=== PATIENT | male | born 1980 | race Caucasian/White ===

== ENCOUNTER 2020-08-25 07:57 | Outpatient (CLI) | payer MEDICARE, MEDICAID, SELFPAY ==
--- NOTE | 2020-08-25 08:02 | ECG_ITS ---
Measurements Intervals [place] Rate: 92 P: 74 VA: 165 QRS: 57 QRSD: 113 T: 35 QT: 328 QTc: 407 Interpretive Statements SINUS RHYTHM INCOMPLETE RIGHT BUNDLE BRANCH BLOCK DELAYED PRECORDIAL R/S TRANSITION BORDERLINE ECG Electronically Signed On 08-25-2020 8:14:08 CDT by Julián Banks D.O.
[2020-08-25 08:22] LABS: Hematocrit 49.4 % (42.0-52.0); Hemoglobin 16.9 g/dL (14.0-18.0); Mean Corpuscular HGB Conc 34.2 g/dl (32-36); Mean Corpuscular Hemoglobin 29.8 pg (26-34); Mean Corpuscular Volume 87.1 fl (80-100); Mean Platelet Volume 10.3 fl (7.4-10.4); Platelet Count Result 189 k/mm3 (150-375); Red Blood Count 5.67 M/mm3 (4.6-6.20); Red Cell Distribution Width 17.6 % (11.5-14.5); White Blood Count 9.2 K/mm3 (4.5-10.0)
[2020-08-25 08:40] LABS: Anion Gap 6.99999 mmol/L (8-16); Blood Urea Nitrogen 35 mg/dL (9-20); Calcium 9.4 mg/dL (8.4-10.2); Carbon Dioxide > 40 mmol/L (22-30); Chloride 89 mmol/L (98-107); Estimated Glomerular Filt Rate 51; Glucose 336 mg/dL (75-110); Potassium 3.4 mmol/L (3.4-5.0); Sodium 136 mmol/L (137-145)
[2020-08-25 08:46] LABS: Prealbumin 39.8 mg/dL (17.6-36.0)
[2020-08-25 08:53] LABS: Hemoglobin A1C 8.3 % (<5.7)
[2020-08-25 08:59] LABS: Iron 164 ug/dL (49-181)
[2020-08-29 11:30] LABS: Vitamin B1 9 nmol/L (8-30)
== END 2020-08-25 07:58 | disposition home or self-care (01) ==
PROVIDERS: PCP Nurse Practitioner Family; Visit Provider Surgery Plastic and Reconstructive Surgery
DX: Z41.1 Encounter for cosmetic surgery (principal); E11.9 Type 2 diabetes mellitus without complications; Z01.818 Encounter for other preprocedural examination
CPT/HCPCS: 36415; 80048; 82040; 83036; 83540; 84134; 84425; 85027; 93005

== ENCOUNTER 2020-08-30 01:19 | Outpatient (CLI) | payer MEDICARE, MEDICAID, SELFPAY ==
[2020-08-30 22:13] LABS: SARS-CoV-2 RNA PCR Negative
== END 2020-08-30 01:20 | disposition home or self-care (01) ==
LOC: ANHCOVIDDT 01:20
PROVIDERS: PCP Nurse Practitioner Family; Visit Provider Surgery Plastic and Reconstructive Surgery
DX: Z01.812 Encounter for preprocedural laboratory examination (principal); Z20.828 Contact with and (suspected) exposure to other viral communicable diseases
CPT/HCPCS: 87635; C9803; U0003

== ENCOUNTER 2021-02-06 09:07 | Outpatient (CLI) | payer MEDICARE, MEDICAID, SELFPAY ==
[2021-02-06 09:49] LABS: Anion Gap 8 mmol/L (8-16); Blood Urea Nitrogen 15 mg/dL (9-20); Calcium 9.1 mg/dL (8.4-10.2); Carbon Dioxide 24 mmol/L (22-30); Chloride 114 mmol/L (98-107); Estimated Glomerular Filt Rate > 60; Glucose 167 mg/dL (75-110); Potassium 3.9 mmol/L (3.4-5.0); Sodium 146 mmol/L (137-145)
== END 2021-02-06 09:08 | disposition home or self-care (01) ==
LOC: ANHSURGERY 09:13
PROVIDERS: Anesthesiology; PCP Nurse Practitioner Family; Visit Provider Surgery Plastic and Reconstructive Surgery
DX: E11.9 Type 2 diabetes mellitus without complications (principal); Z79.899 Other long term (current) drug therapy
CPT/HCPCS: 36415; 80048

== ENCOUNTER → 2021-02-07 00:42 | Outpatient (CLI) | payer MEDICARE, MEDICAID, SELFPAY ==
[2021-02-07 18:53] LABS: SARS-CoV-2 RNA PCR Negative
== END ==
PROVIDERS: PCP Nurse Practitioner Family; Visit Provider Surgery Plastic and Reconstructive Surgery
DX: Z01.812 Encounter for preprocedural laboratory examination (principal); Z20.822 Contact with and (suspected) exposure to COVID-19
CPT/HCPCS: C9803; U0003; U0005

== ENCOUNTER 2021-02-10 01:41 | Day surgery (SDC) | payer MEDICARE, MEDICAID, SELFPAY ==
[2020-08-18 11:04] VITALS: BMI 28.3
[2021-01-27 13:52] VITALS: BMI 29.2
[2021-02-10] VITALS (17 sets, daily range): BP systolic 114–166; BP diastolic 63–97; PULSE 80–95; RESP 14–20; TEMP 36.1–36.8; O2SAT 95–100
[2021-02-10 06:30] LABS: Urine Cotinine NEGATIVE
--- NOTE | 2021-02-10 06:43 | WPDANESEPPF ---
Anes - Initial Pre Proc Eval Procedure: Operation Date: 02/10/21 07:30 Proposed Procedures p Panniculectomy - Chuck Camacho MD Date/Time: 02/10/21 06:43 Surgeon: Chuck Camacho MD Pre Op Diagnosis: panniculitis Patient Data Age: 40 Gender: M Height: 5 ft 10 in Weight: 92.5 kg Allergies Allergy/AdvReac Type Severity Reaction Status Date / Time bee venom protein (honey bee) Allergy Anaphylactic Verified 02/02/21 10:06 Shock Iodine and Iodide Containing Allergy skin Verified 02/02/21 10:06 Produc redness/irritation povidone-iodine Allergy SKIN Verified 02/02/21 10:06 IRRITATION shellfish derived Allergy Diarrhea Verified 02/02/21 10:06 Home Medications Medication Instructions Recorded Confirmed Type atorvastatin 10 mg tablet 10 mg PO DAILY 04/16/20 01/27/21 History gemfibrozil 600 mg tablet 600 mg PO BID 04/16/20 01/27/21 History metformin 1,000 mg tablet 1,000 mg PO BID 04/16/20 01/27/21 History omeprazole 20 mg capsule,delayed 20 mg PO DAILY 04/16/20 01/27/21 History release testosterone cypionate 200 mg/mL 400 mg IM WEEKLY 04/16/20 01/27/21 History intramuscular kit trazodone 100 mg tablet 100 mg PO QPM 04/16/20 01/27/21 History furosemide 40 mg PO DAILY 08/18/20 01/27/21 History insulin detemir U-100 [Levemir 25 unit SUBCUT BID 08/18/20 01/27/21 History U-100 Insulin] apple cider vinegar 250 mg PO DAILY 01/27/21 01/27/21 History cetirizine 10 mg PO DAILY 01/27/21 01/27/21 History dapagliflozin [Farxiga] 5 mg PO DAILY 01/27/21 01/27/21 History dorzolamide 1 drp LEFT EYE BID 01/27/21 01/27/21 History ergocalciferol (vitamin D2) 1,250 mcg PO WEEKLY 01/27/21 01/27/21 History hydroxyzine HCl 25 mg PO TID PRN 01/27/21 01/27/21 History prednisolone acetate 1 drp EACH EYE QID 01/27/21 01/27/21 History pregabalin 150 mg PO BID 01/27/21 01/27/21 History semaglutide [Ozempic] 0.25 mg SUBCUT WEEKLY 01/27/21 01/27/21 History timolol maleate 1 drp EACH EYE BID 01/27/21 01/27/21 History docusate sodium 100 mg capsule 100 mg PO BID #14 cap 02/02/21 Rx ondansetron HCl 4 mg tablet 4 mg PO Q6H PRN #30 tablet 02/02/21 Rx oxycodone-acetaminophen 5 mg-325 1 tablet PO Q6H PRN #15 tablet 02/02/21 02/02/21 Rx mg tablet Laboratory Tests 02/10/21 06:09 Cotinine Negative Patient hx anesthesia problems: none Family hx anesthesia problems: none PMFSH Past Medical History Medical History Anxiety Depression Diabetes Heartburn High cholesterol History of vascular disease Surgical History Surgical History History of vascular surgery multiple procedures Family History Family History Other Diabetes mellitus Social History Social History Smoking packs per day: 0.5 Smoking cigarettes per day: 10.0 Years smoked: 20 Smoking pack-years: 10.00 Smoking status: Former smoker Tobacco type: cigarettes and cigars Additional smoking assessment comments: QUIT CIGARS MAY 2020, QUIT CIGARETTES 2017 Alcohol intake: never Substance use: current Substance use type: marijuana Other substance usage details: EDIBLES/PILLS Last use: 01/19/21 Living arrangements: with family Spiritual care concerns: No Anes - Eval Final PreProcedure Day of Procedure 02/10/21 06:43 Patient weight: overweight Heart: regular rate and rhythm Lungs: clear to auscultation Airway: Mallampati scale class II and other (edentulous) Neurological: alert and oriented Last oral intake: >/= 8 hours ASA classification: III Emergent: no Anesthetic plan: proceed Anesthesia type and monitoring: general ETT and standard monitoring Informed Consent: The patient's anesthetic plan and its attendant risks and benefits were discussed with the patient/family/POA. Questions we
--- NOTE | 2021-02-10 06:53 | WPDHPUPDATE1 ---
History and Physical Update Update Date/Time: 02/10/21 06:53 History and Physical has been reviewed, including an updated exam of the patient. There are NO changes in the patient's condition. Risks, benefits, and alternatives have been discussed and questions answered. Patient agrees to proceed with procedure.
[2021-02-10] MEDS: LACTATED RINGERS 1,000 ML 30 ML IV CONT ×2 (07:05→09:33)
[2021-02-10 07:14] LABS: Glucose Point of Care 210 (65-105)
--- NOTE | 2021-02-10 07:15 | PM.PROC ---
Procedure Note - Detailed Date of procedure: 02/10/21 Pre-op diagnosis: panniculitis Post-op diagnosis: same Procedure performed: Panniculectomy Description of procedure: Patient was marked in the preoperative holding area with his verification. Risks, benefits, alternatives were discussed in extensive detail. I want them to be very realistic about the risks involved as well as expectations. All standing I did a thorough abdominal examination. He states he does not mind losing the umbilicus if necessary. All questions answered to his satisfaction and consent obtained. He was taken to the operating room placed supine on the operating room table. Anesthesia was provided by anesthesiology and prepped and draped in a standard sterile fashion. Surgical time-out was taken. A thorough abdominal examination completed. No hernias palpable. Stab incision was made that tumesced with a tumescent solution. Ten blade used to make the lower incision. I continued dissection to the fascia. Using a V resection with no undermining I resected the planned panniculus. This included removal of umbilicus. Closure was tension free. He was closed over 15 Lalo drains bilateral using 2-0 Vicryl followed by 3-0 strata fix and stephanie. Drains were sutured into place with 3-0 nylon. Dressings placed. He was awoken and taken to the PACU without difficulty. All instrument sponge counts were correct at the end of the case. Anesthesia: GETA Surgeon: Chuck Camacho MD Estimated blood loss (mL): 125 Drains: Yes (Bilateral Lalo) Packing: No Pathology: none sent Complications: No immediate complications Condition: stable Disposition: PACU Findings: Tissue weight 3307 grams
[2021-02-10] MEDS: ceFAZolin 2 GM/D5W 50 ML 2 GM/50 ML BAG IVPB (07:25)
--- NOTE | 2021-02-10 09:05 | SUR.OPER ---
EBL:125cc
--- NOTE | 2021-02-10 09:16 | SUR.OPER ---
area of abrasion present to right lower abdomen, dr. escalona aware
[2021-02-10 09:38] LABS: Glucose Point of Care 184 (65-105)
[2021-02-10] MEDS: fentaNYL CITRATE INJ (*CRX) 100 MCG/2 ML VIAL 25 MCG IV PUSH ×10 (09:41→10:29)
[2021-02-10 11:43] LABS: Mean Platelet Volume 10.3 fl (7.4-10.4); Platelet Count Result 182 k/mm3 (150-375)
[2021-02-10 11:56] LABS: Estimated CRCL calculation 80 ml/min; Estimated Glomerular Filt Rate > 60
[2021-02-10] MEDS: oxyCODONE/ACETAMINOPHEN (*CRX) 5-325 MG TABLET PO ×2 (12:22→18:38)
[2021-02-10] MEDS: PANTOPRAZOLE 40 MG TABLET PO (12:23)
[2021-02-10] MEDS: ATORVASTATIN 10 MG TABLET PO (12:23)
[2021-02-10 14:27] LABS: Glucose Point of Care 147 (65-105)
--- NOTE | 2021-02-10 14:36 | ADMGEN ---
This patient, Kishor Cohen, was admitted to Medical Room 258-. Patient/family oriented to hospital policies and general routines including ID bracelet, bed and alarms, visiting hours, pain management, procedures, bathroom and other care routines, personal items, smoking policy, room service/diet, and visiting hours. Information on how to activate the Rapid Response Team has been discussed. Patient/Family are encouraged to report perceived risks to care and to ask questions if they do not understand what they are told or what they should do.
--- NOTE | 2021-02-10 14:41 | PM.IMPN ---
Subjective Date/time seen: 02/10/21 14:41 Objective Data Vital Signs Vital Signs: Vital Signs - 24 hr 02/10/21 06:10 02/10/21 09:33 02/10/21 09:40 Temperature 36.8 C 36.1 C L Pulse Rate 90 93 87 Respiratory Rate 20 18 18 Blood Pressure 136/63 166/96 H 159/97 H Pulse Oximetry 100 98 99 02/10/21 09:55 02/10/21 10:05 02/10/21 10:10 Temperature Pulse Rate 87 94 86 Respiratory Rate 16 16 16 Blood Pressure 157/89 H 165/95 H 155/89 H Pulse Oximetry 98 100 95 02/10/21 10:20 02/10/21 10:30 02/10/21 10:40 Temperature Pulse Rate 85 85 87 Respiratory Rate 14 14 14 Blood Pressure 157/85 H 146/86 H 152/87 H Pulse Oximetry 96 98 96 02/10/21 10:45 02/10/21 10:53 Temperature Pulse Rate 86 90 Respiratory Rate 16 Blood Pressure 150/86 H 149/90 H Pulse Oximetry 96 96 Intake/Output Intake/Output: Intake & Output 02/07/21 02/08/21 02/09/21 02/10/21 23:59 23:59 23:59 23:59 Intake Total 500 Output Total 30 Balance 470 Meds/Results Medications: Active Medications Generic Name Dose Route Start Last Admin Trade Name Freq PRN Reason Stop Dose Admin Atorvastatin Calcium 10 mg 02/10/21 12:00 02/10/21 12:23 Atorvastatin 10 Mg Tablet PO 10 mg DAILY PILAR Administration Dextrose 12.5 gm 02/10/21 14:34 Dextrose 50% 25 Gm/50 Ml Syringe IV PUSH PRN PRN Hypoglycemia Protocol Docusate Sodium 100 mg 02/10/21 21:00 Docusate Sodium 100 Mg Capsule PO Q12HR PILAR Docusate Sodium 100 mg 02/10/21 17:00 Docusate Sodium 100 Mg Capsule PO BID ON LICENSE OF [facility] Dorzolamide HCl 1 drop 02/10/21 21:00 Dorzolamide Hcl 2% Ophth Drops LEFT EYE Q12HR ON LICENSE OF [facility] Enoxaparin Sodium 40 mg 02/10/21 17:00 Enoxaparin 40 Mg/0.4 Ml Syringe SUB-Q Q24H ON LICENSE OF [facility] Ergocalciferol unit 02/17/21 09:00 Ergocalciferol 50,000 Unit Capsule PO WEEKLY PILAR Furosemide 40 mg 02/11/21 09:00 Furosemide 40 Mg Tablet PO DAILY PILAR Gemfibrozil 600 mg 02/10/21 16:30 Gemfibrozil 600 Mg Tablet PO BIDAC ON LICENSE OF [facility] Glucagon 1 mg 02/10/21 14:34 Glucagon For Inj 1 Mg Vial IM PRN PRN Hypoglycemia Protocol Glucose 15 gm 02/10/21 14:34 Glucose Oral Gel 15 Gm Of Glucse In 37.5 Gm Tube PO PRN PRN Hypoglycemia Protocol Hydroxyzine HCl 25 mg 02/10/21 14:38 Hydroxyzine Hcl 25 Mg Tablet PO TID PRN Anxiety Lactated Ringer's 1,000 mls @ 125 mls/hr 02/10/21 09:40 Lr - Lactated Ringers Iv IV CONT .Q8H ON LICENSE OF [facility] Dextrose 1,000 mls @ 100 mls/hr 02/10/21 14:34 Dextrose 5% 1,000 Ml IVPB PRN PRN Hypoglycemia Protocol Insulin Aspart 3 - 6 units 02/10/21 17:00 Insulin Aspart (*Bkc) 100 Units/Ml SUB-Q TIDWM ON LICENSE OF [facility] Protocol Loratadine 10 mg 02/11/21 09:00 Loratadine 10 Mg Tablet PO 03/13/21 09:01 DAILY ON LICENSE OF [facility] Metformin HCl 1,000 mg 02/10/21 17:00 Metformin Hcl 500 Mg Tablet PO BID ON LICENSE OF [facility] Morphine Sulfate 2 mg 02/10/21 09:39 Morphine Sulfate (*Crx) 2 Mg/Ml Inj IV PUSH Q2H PRN Pain Non-Formulary Medication 5 mg 02/11/21 09:00 Dapagliflozin [Farxiga] PO 03/13/21 09:01 DAILY ON LICENSE OF [facility] Non-Formulary Medication 0.25 mg 02/17/21 09:00 Semaglutide [Ozempic] SUB-Q 03/19/21 09:01 WEEKLY ON LICENSE OF [facility] Non-Formulary Medication 250 mg 02/11/21 09:00 Apple Cider Vinegar PO 03/13/21 09:01 DAILY ON LICENSE OF [facility] Non-Formulary Medication 25 unit 02/10/21 17:00 Insulin Detemir U-100 SUB-Q 03/12/21 17:01 BID ON LICENSE OF [facility] Ondansetron HCl 4 mg 02/10/21 09:39 Ondansetron Inj 4 Mg/2 Ml Vial IV PUSH Q6H PRN Nausea Oxycodone/Acetaminophen 1 - 2 tablet 02/10/21 09:39 02/10/21 12:22 Oxycodone/Acetaminophen (*Crx) 5-325 Mg Tablet PO 2 tablet Q6H PRN Administration Pain Pantoprazole Sodium 40 mg 02/10/21 12:00 02/10/21 12:23 Pantoprazole 40 Mg Tablet PO 03/13/21 12:01 40 mg DAILY PILAR Administration Prednisolone Acetate
[2021-02-10] MEDS: LACTATED RINGERS 1,000 ML 125 ML IV CONT ×2 (14:43→22:52)
--- NOTE | 2021-02-10 14:53 | PM.IMCN ---
HPI Data of Consult Consult date: 02/10/21 Requesting Physician: Chuck Camacho MD Primary Care Provider: Cari Sher, ARMORED CAR DRIVER Consult Narrative Reason for consult: Medical managment Narrative: Kishor Cohen is a 40 year old male FORMERLY [facility], [facility]–1983 Past Medical History Medical History Anxiety Depression Diabetes Heartburn High cholesterol History of vascular disease Surgical History Surgical History History of vascular surgery multiple procedures Family History Family History Other Diabetes mellitus Social History Social History Smoking packs per day: 0.5 Smoking cigarettes per day: 10.0 Years smoked: 20 Smoking pack-years: 10.00 Smoking status: Never smoker Tobacco type: cigarettes and cigars Additional smoking assessment comments: QUIT CIGARS MAY 2020, QUIT CIGARETTES 2017 Alcohol intake: current Drinks per week: 1 Substance use: current Substance use type: marijuana Other substance usage details: EDIBLES/PILLS Last use: 02/09/21 Living arrangements: with family Gender identity (if verbalized by the patient): Male Spiritual care concerns: No Meds Home Medications and Allergies Home Medications Medication Instructions Recorded Confirmed Type atorvastatin 10 mg tablet 10 mg PO DAILY 04/16/20 02/10/21 History gemfibrozil 600 mg tablet 600 mg PO BID 04/16/20 02/10/21 History metformin 1,000 mg tablet 1,000 mg PO BID 04/16/20 02/10/21 History omeprazole 20 mg capsule,delayed 20 mg PO DAILY 04/16/20 02/10/21 History release testosterone cypionate 200 mg/mL 400 mg IM WEEKLY 04/16/20 02/10/21 History intramuscular kit trazodone 100 mg tablet 100 mg PO QPM 04/16/20 02/10/21 History furosemide 40 mg PO DAILY 08/18/20 02/10/21 History insulin detemir U-100 [Levemir 25 unit SUBCUT BID 08/18/20 02/10/21 History U-100 Insulin] apple cider vinegar 250 mg PO DAILY 01/27/21 02/10/21 History cetirizine 10 mg PO DAILY 01/27/21 02/10/21 History dapagliflozin [Farxiga] 5 mg PO DAILY 01/27/21 02/10/21 History dorzolamide 1 drp LEFT EYE BID 01/27/21 02/10/21 History ergocalciferol (vitamin D2) 1,250 mcg PO WEEKLY 01/27/21 02/10/21 History hydroxyzine HCl 25 mg PO TID PRN 01/27/21 02/10/21 History prednisolone acetate 1 drp EACH EYE QID 01/27/21 02/10/21 History pregabalin 150 mg PO BID 01/27/21 02/10/21 History semaglutide [Ozempic] 0.25 mg SUBCUT WEEKLY 01/27/21 02/10/21 History timolol maleate 1 drp EACH EYE BID 01/27/21 02/10/21 History docusate sodium 100 mg capsule 100 mg PO BID #14 cap 02/02/21 02/10/21 Rx ondansetron HCl 4 mg tablet 4 mg PO Q6H PRN #30 tablet 02/02/21 02/10/21 Rx oxycodone-acetaminophen 5 mg-325 1 tablet PO Q6H PRN #15 tablet 02/02/21 02/10/21 Rx mg tablet Allergies Allergy/AdvReac Type Severity Reaction Status Date / Time bee venom protein (honey bee) Allergy Severe Anaphylactic Verified 02/10/21 06:53 Shock Iodine and Iodide Containing Allergy Severe EXTREME Verified 02/10/21 06:53 Produc PAIN AND BURNING AT SITE povidone-iodine Allergy Severe EXTREME Verified 02/10/21 06:53 KILPATRICK/BURNING shellfish derived AdvReac Mild Diarrhea Verified 02/10/21 06:53 Vital Signs Vital Signs - 24 hr 02/10/21 06:10 02/10/21 09:33 02/10/21 09:40 Temperature 36.8 C 36.1 C L Pulse Rate 90 93 87 Respiratory Rate 20 18 18 Blood Pressure 136/63 166/96 H 159/97 H Pulse Oximetry 100 98 99 02/10/21 09:55 02/10/21 10:05 02/10/21 10:10 Temperature Pulse Rate 87 94 86 Respiratory Rate 16 16 16 Blood Pressure 157/89 H 165/95 H 155/89 H Pulse Oximetry 98 100 95 04/13/21 10:20 02/10/21 10:30 02/10/21 10:40 Temperature Pulse Rate 85 85 87 Respiratory Rate 14 14 14 Blood Pressure 157/85 H 146/86 H 152/87 H Pulse Oxim
--- NOTE | 2021-02-10 15:04 | PM.IMCN ---
Assessment and Plan Assessment and plan (1) Diabetes: Code(s): E11.9 - Type 2 diabetes mellitus without complications Status: Acute Assessment and Plan: Per pt last Hgb A1x 12.3, 2 weeks ago Hold oral antihyperglycemics SSI, accuchecks Monitor (2) High cholesterol: Code(s): E78.00 - Pure hypercholesterolemia, unspecified Status: Acute Assessment and Plan: Resume home statin (3) Heartburn: Code(s): R12 - Heartburn Status: Acute Assessment and Plan: Resuem home PPI (4) S/P panniculectomy: Code(s): Z98.890 - Other specified postprocedural states Status: Acute Assessment and Plan: Management per GS Pain control Dressing changes ROSEY drain present HPI Data of Consult Consult date: 02/10/21 Requesting Physician: Chuck Camacho MD Primary Care Provider: Cari Sher, DITCHING MACHINE OPERATOR Consult Narrative Reason for consult: * Narrative: Kishor Cohen is a 40 year old male who has a past medical history including DM type II, HLD, and GERD been admitted for panniculitis. He tells me he has over 30 medical diagnoses.He has lost a significant amount of weight with diet and exercise and had been having problems with rashes and infections under his panniculus. He also had concerns with odor and hygiene.He has undergone panniculectomy today per Dr. Camacho. We have been consulted for medical management. His was at the bedside during interview and exam. He tells me that his pain is controlled at this time. He denied any fever, chills, SERRA, CP, SOB, N/D. Review of Systems Review of Systems: All systems reviewed & are unremarkable except as noted in HPI and below PMFSH Past Medical History Medical History Anxiety Depression Diabetes Heartburn High cholesterol History of vascular disease Surgical History Surgical History History of vascular surgery multiple procedures Family History Family History Other Diabetes mellitus Social History Social History Smoking packs per day: 0.5 Smoking cigarettes per day: 10.0 Years smoked: 20 Smoking pack-years: 10.00 Smoking status: Never smoker Tobacco type: cigarettes and cigars Additional smoking assessment comments: QUIT CIGARS MAY 2020, QUIT CIGARETTES 2017 Alcohol intake: current Drinks per week: 1 Substance use: current Substance use type: marijuana Other substance usage details: EDIBLES/PILLS Last use: 02/09/21 Living arrangements: with family Gender identity (if verbalized by the patient): Male Spiritual care concerns: No Meds Home Medications and Allergies Home Medications Medication Instructions Recorded Confirmed Type atorvastatin 10 mg tablet 10 mg PO DAILY 04/16/20 02/10/21 History gemfibrozil 600 mg tablet 600 mg PO BID 04/16/20 02/10/21 History metformin 1,000 mg tablet 1,000 mg PO BID 04/16/20 02/10/21 History omeprazole 20 mg capsule,delayed 20 mg PO DAILY 04/16/20 02/10/21 History release testosterone cypionate 200 mg/mL 400 mg IM WEEKLY 04/16/20 02/10/21 History intramuscular kit trazodone 100 mg tablet 100 mg PO QPM 04/16/20 02/10/21 History furosemide 40 mg PO DAILY 08/18/20 02/10/21 History insulin detemir U-100 [Levemir 25 unit SUBCUT BID 08/18/20 02/10/21 History U-100 Insulin] apple cider vinegar 250 mg PO DAILY 01/27/21 02/10/21 History cetirizine 10 mg PO DAILY 01/27/21 02/10/21 History dapagliflozin [Farxiga] 5 mg PO DAILY 01/27/21 02/10/21 History dorzolamide 1 drp LEFT EYE BID 01/27/21 02/10/21 History ergocalciferol (vitamin D2) 1,250 mcg PO WEEKLY 01/27/21 02/10/21 History hydroxyzine HCl 25 mg PO TID PRN 01/27/21 02/10/21 History prednisolone acetate 1 drp EACH EYE QID 01/27/21 02/10/21 History pregabali
[2021-02-10] MEDS: MORPHINE SULFATE (*CRX) 2 MG/ML INJ IV PUSH ×3 (15:39→22:54)
[2021-02-10] MEDS: ENOXAPARIN 40 MG/0.4 ML SYRINGE SUB-Q (17:28)
[2021-02-10] MEDS: metFORMIN HCL 500 MG TABLET 1000 MG PO (17:28)
[2021-02-10] MEDS: gemfibroziL 600 MG TABLET PO (17:29)
[2021-02-10 17:43] LABS: Glucose Point of Care 133 (65-105)
[2021-02-10] MEDS: INSULIN DETEMIR 100 UNITS/ML 25 UNITS SUB-Q (18:39)
--- NOTE | 2021-02-10 18:39 | WPDPN ---
Progress Note: A&P Assessment and Plan (1) Panniculitis: Code(s): M79.3 - Panniculitis, unspecified Status: Acute Assessment and Plan: He had a little drainage from the incision as well as a degree of fullness on the right side of the abdomen. He did have tumescence intraoperatively. At this point after hearing the options he would like to monitor. If there is any worsening they will reach out immediately. Will hold Lovenox. Also check labs tonight and tomorrow. Today we had a lengthy discussion about the options. Went risks, benefits, alternatives of each. They would like to monitor for now. There is just a slight asymmetry in fullness. Spoke with the nurses as well and they are going to monitor. If there is any worsening they will call. Review of Systems Review of Systems: All systems reviewed & are unremarkable except as noted in HPI and below Exam Narrative: Exam Narrative: Minimal output the drains currently. He does have a little fullness on the right side of the abdomen compared to the left. Mild asymmetry. No clear evidence of hematoma. No calf tenderness. Negative Homans. Otherwise doing well. Const: General: comfortable, no acute distress, alert and awake; No acute distress Orientation/consciousness: oriented to person HENMT: Head: normal to inspection Ears: external ears normal General nose exam: Normal external nose present Face and sinus: normal facial exam Eyes: General: appearance normal, both eyes and all related structures Periorbital: periorbital findings normal Eyelids: eyelids normal Conjunctivae: conjunctivae normal Neck: Neck: normal visual inspection Chest: Chest palpation & inspection: normal inspection of the chest Resp: Effort & Inspection: normal respiratory effort and able to speak in complete sentences GI: Inspection: normal to inspection Neuro: General: oriented to person Psych: Appearance: grossly normal Mental Status: mental status grossly normal Objective Data Vital Signs Vital Signs: Vital Signs - 24 hr 02/10/21 06:10 02/10/21 09:33 02/10/21 09:40 Temperature 36.8 C 36.1 C L Pulse Rate 90 93 87 Respiratory Rate 20 18 18 Blood Pressure 136/63 166/96 H 159/97 H Pulse Oximetry 100 98 99 02/10/21 09:55 02/10/21 10:05 02/10/21 10:10 Temperature Pulse Rate 87 94 86 Respiratory Rate 16 16 16 Blood Pressure 157/89 H 165/95 H 155/89 H Pulse Oximetry 98 100 95 02/10/21 10:20 02/10/21 10:30 02/10/21 10:40 Temperature Pulse Rate 85 85 87 Respiratory Rate 14 14 14 Blood Pressure 157/85 H 146/86 H 152/87 H Pulse Oximetry 96 98 96 02/10/21 10:45 02/10/21 10:53 02/10/21 11:00 Temperature 36.2 C L Pulse Rate 86 90 85 Respiratory Rate 16 16 Blood Pressure 150/86 H 149/90 H 140/75 Pulse Oximetry 96 96 100 02/10/21 11:15 02/10/21 11:45 02/10/21 12:45 Temperature 36.1 C L 36.2 C L 36.3 C L Pulse Rate 80 85 82 Respiratory Rate 16 16 16 Blood Pressure 136/70 141/75 H 142/74 H Pulse Oximetry 100 100 100 Intake/Output Intake/Output: Intake & Output 02/07/21 02/08/21 02/09/21 02/10/21 23:59 23:59 23:59 23:59 Intake Total 620 Output Total 110 Balance 510 Meds/Results Medications: Active Medications Generic Name Dose Route Start Last Admin Trade Name Freq PRN Reason Stop Dose Admin Atorvastatin Calcium 10 mg 02/10/21 12:00 02/10/21 12:23 Atorvastatin 10 Mg Tablet PO 10 mg DAILY PILAR Administration Dextrose 12.5 gm 02/10/21 14:34 Dextrose 50% 25 Gm/50 Ml Syringe IV PUSH PRN PRN Hypoglycemia Protocol Docusate Sodium 100 mg 02/10/21 21:00 Docusate Sodium 100 Mg Capsule PO Q12HR PILAR Dorzolamide HCl 1 drop 02/10/21 21:00 Dorzolamide Hcl 2% Ophth Drops LEFT EYE Q12HR PILAR Enoxaparin Sodium 40 mg 02/10/21 17:00 02/10/21 17:28 Enoxaparin 40 Mg/0.4 Ml Syringe SUB-Q 40 mg Q24H PILAR Administration Furosemide 40 mg 02/11/21 09:00 Fur
[2021-02-10 19:16] LABS: Basophils Absolute Auto 0.1 K/mm3 (0.0-0.1); Basophils Percent Auto 0.3 % (0.2-1.2); Eosinophils Absolute Auto 0.1 K/mm3 (0-0.3); Eosinophils Percent Auto 0.6 % (0-4.4); Hematocrit 41.3 % (42.0-52.0); Hemoglobin 14.2 g/dL (14.0-18.0); Immature Granulocyte Absolute 0.09 K/mm3 (0.00-0.031); Immature Granulocyte Percent A 0.5 % (0-0.5); Lymphocytes Absolute Auto 2.05 K/mm3 (0.9-3.2); Lymphocytes Percent Auto 11.4 % (18.3-44.2); Mean Corpuscular HGB Conc 34.4 g/dl (32-36); Mean Corpuscular Hemoglobin 30.9 pg (26-34); Mean Platelet Volume 10.5 fl (7.4-10.4); Monocytes Absolute Auto 1.5 K/mm3 (0.1-0.6); Monocytes Percent Auto 8.3 % (2.6-8.5); Neutrophils Absolute Auto 14.2 K/mm3 (1.3-6.7); Neutrophils Percent Auto 78.9 % (45.5-73.1); Platelet Count Result 197 k/mm3 (150-375); Red Blood Count 4.59 M/mm3 (4.6-6.20); Red Cell Distribution Width 13.6 % (11.5-14.5)
[2021-02-10 19:26] LABS: Anion Gap 5 mmol/L (8-16); Blood Urea Nitrogen 11 mg/dL (9-20); Calcium 8.2 mg/dL (8.4-10.2); Carbon Dioxide 25 mmol/L (22-30); Chloride 111 mmol/L (98-107); Estimated CRCL calculation 80 ml/min; Estimated Glomerular Filt Rate > 60; Glucose 148 mg/dL (75-110); Potassium 3.7 mmol/L (3.4-5.0); Sodium 141 mmol/L (137-145)
[2021-02-10] MEDS: DOCUSATE SODIUM 100 MG CAPSULE PO (20:45)
[2021-02-10] MEDS: DORZOLAMIDE HCL 2% OPHTH DROPS 1 DROP LEFT EYE (20:46)
[2021-02-10] MEDS: TIMOLOL MALEATE 0.5% OP SOLN 5 ML BOTTLE 1 DROP EACH EYE (20:46)
[2021-02-10] MEDS: traZODone HCL 50 MG TABLET 100 MG PO (20:47)
[2021-02-10] MEDS: PREGABALIN (*CRX) 75 MG CAPSULE 150 MG PO (20:49)
[2021-02-10 22:32] LABS: Glucose Point of Care 151 (65-105)
[2021-02-10 23:49] LABS: Glucose Point of Care 137 (65-105)
[2021-02-11 00:46] VITALS: BP 112/65; PULSE 94; RESP 20; TEMP 36.3; O2SAT 94
[2021-02-11] MEDS: oxyCODONE/ACETAMINOPHEN (*CRX) 5-325 MG TABLET PO ×2 (03:28→09:16)
[2021-02-11 05:12] VITALS: BP 104/66; PULSE 63; RESP 20; TEMP 36.6; O2SAT 94
[2021-02-11 05:44] LABS: Basophils Absolute Auto 0.1 K/mm3 (0.0-0.1); Basophils Percent Auto 0.4 % (0.2-1.2); Eosinophils Absolute Auto 0.1 K/mm3 (0-0.3); Eosinophils Percent Auto 0.7 % (0-4.4); Hematocrit 35.3 % (42.0-52.0); Hemoglobin 12.2 g/dL (14.0-18.0); Immature Granulocyte Absolute 0.06 K/mm3 (0.00-0.031); Immature Granulocyte Percent A 0.4 % (0-0.5); Lymphocytes Percent Auto 18.4 % (18.3-44.2); Mean Corpuscular HGB Conc 34.6 g/dl (32-36); Mean Corpuscular Volume 89.6 fl (80-100); Mean Platelet Volume 10.8 fl (7.4-10.4); Monocytes Absolute Auto 1.5 K/mm3 (0.1-0.6); Neutrophils Absolute Auto 9.4 K/mm3 (1.3-6.7); Neutrophils Percent Auto 69.1 % (45.5-73.1); Platelet Count Result 164 k/mm3 (150-375); Red Blood Count 3.94 M/mm3 (4.6-6.20); Red Cell Distribution Width 13.5 % (11.5-14.5); White Blood Count 13.6 K/mm3 (4.5-10.0)
[2021-02-11 05:45] LABS: Anion Gap 7 mmol/L (8-16); Blood Urea Nitrogen 12 mg/dL (9-20); Calcium 8.2 mg/dL (8.4-10.2); Carbon Dioxide 21 mmol/L (22-30); Chloride 112 mmol/L (98-107); Estimated CRCL calculation 88 ml/min; Estimated Glomerular Filt Rate > 60; Glucose 94 mg/dL (75-110); Potassium 3.3 mmol/L (3.4-5.0); Sodium 140 mmol/L (137-145)
--- NOTE | 2021-02-11 06:42 | PC.NURSE ---
DR CORONEL HERE, DREESING REMOVED, ESTEVAN INTACT, DRAINS INTACT
[2021-02-11] MEDS: gemfibroziL 600 MG TABLET PO (06:45)
--- NOTE | 2021-02-11 07:01 | WPDPN ---
Progress Note: A&P Assessment and Plan (1) Panniculitis: Code(s): M79.3 - Panniculitis, unspecified Status: Acute Assessment and Plan: He is doing very well after panniculectomy. Will discharge home. Follow up in 2 weeks however keep us updated with drain outputs. Appreciate hospitalist assistance. Today we had a lengthy discussion with them about his care. What monitor for. Made sure answered all of their questions are satisfaction. They voiced understanding. I will see him back. Call with any questions or concerns. Time Spent With Patient Time with patient: 15 - 25 minutes Review of Systems Review of Systems: All systems reviewed & are unremarkable except as noted in HPI and below Exam Narrative: Exam Narrative: Abdomen is healing well. No signs of infection. No hematoma. No seroma. Drains are becoming serosanguineous. No calf tenderness. Negative Homans. Const: General: comfortable, no acute distress, alert and awake; No acute distress Orientation/consciousness: oriented to person HENMT: Head: normal to inspection Ears: external ears normal General nose exam: Normal external nose present Face and sinus: normal facial exam Eyes: General: appearance normal, both eyes and all related structures Periorbital: periorbital findings normal Eyelids: eyelids normal Conjunctivae: conjunctivae normal Neck: Neck: normal visual inspection Chest: Chest palpation & inspection: normal inspection of the chest Resp: Effort & Inspection: normal respiratory effort and able to speak in complete sentences GI: Inspection: normal to inspection Neuro: General: oriented to person Psych: Appearance: grossly normal Mental Status: mental status grossly normal Objective Data Vital Signs Vital Signs: Vital Signs - 24 hr 02/10/21 09:33 02/10/21 09:40 02/10/21 09:55 Temperature 36.1 C L Pulse Rate 93 87 87 Respiratory Rate 18 18 16 Blood Pressure 166/96 H 159/97 H 157/89 H Pulse Oximetry 98 99 98 02/10/21 10:05 02/10/21 10:10 02/10/21 10:20 Temperature Pulse Rate 94 86 85 Respiratory Rate 16 16 14 Blood Pressure 165/95 H 155/89 H 157/85 H Pulse Oximetry 100 95 96 02/10/21 10:30 02/10/21 10:40 02/10/21 10:45 Temperature Pulse Rate 85 87 86 Respiratory Rate 14 14 16 Blood Pressure 146/86 H 152/87 H 150/86 H Pulse Oximetry 98 96 96 02/10/21 10:53 02/10/21 11:00 02/10/21 11:15 Temperature 36.2 C L 36.1 C L Pulse Rate 90 85 80 Respiratory Rate 16 16 Blood Pressure 149/90 H 140/75 136/70 Pulse Oximetry 96 100 100 02/10/21 11:45 02/10/21 12:45 02/10/21 18:00 Temperature 36.2 C L 36.3 C L 36.6 C Pulse Rate 85 82 95 Respiratory Rate 16 16 16 Blood Pressure 141/75 H 142/74 H 121/69 Pulse Oximetry 100 100 99 02/10/21 20:17 02/11/21 00:46 02/11/21 05:12 Temperature 36.8 C 36.3 C L 36.6 C Pulse Rate 94 94 63 Respiratory Rate 20 20 20 Blood Pressure 114/69 112/65 104/66 Pulse Oximetry 97 94 94 Intake/Output Intake/Output: Intake & Output 02/08/21 02/09/21 02/10/21 02/11/21 23:59 23:59 23:59 23:59 Intake Total 1620 1290 Output Total 155 Balance 1465 1290 Meds/Results Medications: Active Medications Generic Name Dose Route Start Last Admin Trade Name Freq PRN Reason Stop Dose Admin Atorvastatin Calcium 10 mg 02/10/21 12:00 02/10/21 12:23 Atorvastatin 10 Mg Tablet PO 10 mg DAILY PILAR Administration Dextrose 12.5 gm 02/10/21 14:34 Dextrose 50% 25 Gm/50 Ml Syringe IV PUSH PRN PRN Hypoglycemia Protocol Docusate Sodium 100 mg 02/10/21 21:00 02/10/21 20:45 Docusate Sodium 100 Mg Capsule PO 100 mg Q12HR PILAR Administration Dorzolamide HCl 1 drop 02/10/21 21:00 02/10/21 20:46 Dorzolamide Hcl 2% Ophth Drops LEFT EYE 1 drop Q12HR PILAR Administration Enoxaparin Sodium 40 mg 02/10/21 17:00 02/10/21 17:28 Enoxaparin 40 Mg/0.4 Ml Syringe SUB-Q 40 mg Q24H PILAR Administration Furosemide 40 m
--- NOTE | 2021-02-11 07:12 | PM.DS ---
DS: Admitting Diagnosis Admitting Diagnosis Admitting Diagnosis: Panniculitis Diabetes DS: Discharge Diagnosis Discharge Diagnosis (1) Panniculitis: Code(s): M79.3 - Panniculitis, unspecified Status: Acute (2) Diabetes: Code(s): E11.9 - Type 2 diabetes mellitus without complications Status: Acute DS: Summary Hospital Course Hospital Course: He was admitted underwent panniculectomy uneventfully. Postoperatively had a little fullness in his right side with some drainage. We monitored and there is no evidence of hematoma. He has done very well since. Ambulating. Tolerating diet. Pain controlled. Will discharge home. During the visit we did have the hospitalist see him for medical management. Time Spent with Patient Time attestation: Total time spent providing and/or coordinating discharge services: 20 minutes Exam Narrative: Exam Narrative: Abdomen is healing well. No signs of infection. No hematoma. No seroma. Drains are becoming serosanguineous. No calf tenderness. Negative Homans. Const: General: comfortable, no acute distress, alert and awake; No acute distress Orientation/consciousness: oriented to person HENMT: Head: normal to inspection Ears: external ears normal General nose exam: Normal external nose present Face and sinus: normal facial exam Eyes: General: appearance normal, both eyes and all related structures Periorbital: periorbital findings normal Eyelids: eyelids normal Conjunctivae: conjunctivae normal Neck: Neck: normal visual inspection Chest: Chest palpation & inspection: normal inspection of the chest Resp: Effort & Inspection: normal respiratory effort and able to speak in complete sentences GI: Inspection: normal to inspection Neuro: General: oriented to person Psych: Appearance: grossly normal Mental Status: mental status grossly normal DS: Data Data Completed and Pending Labs on day of discharge: Labs from last 24 hours 02/11/21 02/11/21 02/10/21 05:10 05:10 23:01 WBC 13.6 H RBC 3.94 L Hgb 12.2 L Hct 35.3 L MCV 89.6 MCH 31.0 MCHC 34.6 RDW 13.5 Plt Count 164 MPV 10.8 H Immature Gran % (Auto) 0.4 Neut % (Auto) 69.1 Lymph % (Auto) 18.4 [place] % (Auto) 11.0 H Eos % (Auto) 0.7 Baso % (Auto) 0.4 Lymph # (Auto) 2.50 [place] # (Auto) 1.5 H Eos # (Auto) 0.1 Baso # (Auto) 0.1 Abs Immat Gran (auto) 0.06 H Absolute Neuts (auto) 9.4 H Absolute Nucleated RBC 0.0 Nucleated RBC % 0.0 Sodium 140 Potassium 3.3 L Chloride 112 H Carbon Dioxide 21 L Anion Gap 7 L BUN 12 Creatinine 1.00 Estim Creat Clear Calc 88 Estimated GFR > 60 Glucose 94 POC Capillary Glucose 137 H Calcium 8.2 L 02/10/21 02/10/21 02/10/21 20:44 18:51 18:51 WBC 18.0 H RBC 4.59 L Hgb 14.2 Hct 41.3 L MCV 90.0 MCH 30.9 MCHC 34.4 RDW 13.6 Plt Count 197 MPV 10.5 H Immature Gran % (Auto) 0.5 Neut % (Auto) 78.9 H Lymph % (Auto) 11.4 L [place] % (Auto) 8.3 Eos % (Auto) 0.6 Baso % (Auto) 0.3 Lymph # (Auto) 2.05 [place] # (Auto) 1.5 H Eos # (Auto) 0.1 Baso # (Auto) 0.1 Abs Immat Gran (auto) 0.09 H Absolute Neuts (auto) 14.2 H Absolute Nucleated RBC 0.0 Nucleated RBC % 0.0 Sodium 141 Potassium 3.7 Chloride 111 H Carbon Dioxide 25 Anion Gap 5 L BUN 11 Creatinine 1.10 Estim Creat Clear Calc 80 Estimated GFR > 60 Glucose 148 H POC Capillary Glucose 151 H Calcium 8.2 L 02/10/21 02/10/21 02/10/21 17:30 14:22 11:37 WBC RBC Hgb Hct MCV MCH MCHC RDW Plt Count MPV Immature Gran % (Auto) Neut % (Auto) Lymph % (Auto) [place] % (Auto) Eos % (Auto) Baso % (Auto) Lymph # (Auto) [place] # (Auto) Eos # (Auto) Baso # (Auto) Abs Immat Gran (auto) Absolute Neuts (auto) Absolute Nucleated RBC
--- NOTE | 2021-02-11 07:15 | WPDANESPN ---
Anes - Prog Note Post-Op Date/Time: 02/11/21 07:15 Cardiovascular status: normal Respiratory status: normal Airway patency: baseline Mental status: baseline Post-Op hydration status: normal Vital Signs: Last Vital Signs Temp 36.6 C 02/11/21 05:12 Pulse 63 02/11/21 05:12 Resp 20 02/11/21 05:12 BP 104/66 02/11/21 05:12 Pulse Ox 94 02/11/21 05:12 Pain Score (VAS): 0 I/O: Intake & Output 02/10/21 02/10/21 02/11/21 15:59 23:59 07:59 Intake Total 620 1000 1290 Output Total 30 125 Balance 715 607 6588 Laboratory Tests 02/11/21 05:10 02/11/21 05:10 02/10/21 02/10/21 02/10/21 09:36 11:37 11:37 WBC RBC Hgb Hct MCV MCH MCHC RDW Plt Count 182 MPV 10.3 Immature Gran % (Auto) Neut % (Auto) Lymph % (Auto) [place] % (Auto) Eos % (Auto) Baso % (Auto) Lymph # (Auto) [place] # (Auto) Eos # (Auto) Baso # (Auto) Abs Immat Gran (auto) Absolute Neuts (auto) Absolute Nucleated RBC Nucleated RBC % Sodium Potassium Chloride Carbon Dioxide Anion Gap BUN Creatinine 1.10 Estim Creat Clear Calc 80 Estimated GFR > 60 Glucose POC Capillary Glucose 184 H Calcium 02/10/21 02/10/21 02/10/21 14:22 17:30 18:51 WBC 18.0 H RBC 4.59 L Hgb 14.2 Hct 41.3 L MCV 90.0 MCH 30.9 MCHC 34.4 RDW 13.6 Plt Count 197 MPV 10.5 H Immature Gran % (Auto) 0.5 Neut % (Auto) 78.9 H Lymph % (Auto) 11.4 L [place] % (Auto) 8.3 Eos % (Auto) 0.6 Baso % (Auto) 0.3 Lymph # (Auto) 2.05 [place] # (Auto) 1.5 H Eos # (Auto) 0.1 Baso # (Auto) 0.1 Abs Immat Gran (auto) 0.09 H Absolute Neuts (auto) 14.2 H Absolute Nucleated RBC 0.0 Nucleated RBC % 0.0 Sodium Potassium Chloride Carbon Dioxide Anion Gap BUN Creatinine Estim Creat Clear Calc Estimated GFR Glucose POC Capillary Glucose 147 H 133 H Calcium 02/10/21 02/10/21 02/10/21 18:51 20:44 23:01 WBC RBC Hgb Hct MCV MCH MCHC RDW Plt Count MPV Immature Gran % (Auto) Neut % (Auto) Lymph % (Auto) [place] % (Auto) Eos % (Auto) Baso % (Auto) Lymph # (Auto) [place] # (Auto) Eos # (Auto) Baso # (Auto) Abs Immat Gran (auto) Absolute Neuts (auto) Absolute Nucleated RBC Nucleated RBC % Sodium 141 Potassium 3.7 Chloride 111 H Carbon Dioxide 25 Anion Gap 5 L BUN 11 Creatinine 1.10 Estim Creat Clear Calc 80 Estimated GFR > 60 Glucose 148 H POC Capillary Glucose 151 H 137 H Calcium 8.2 L 02/11/21 02/11/21 05:10 05:10 WBC 13.6 H RBC 3.94 L Hgb 12.2 L Hct 35.3 L MCV 89.6 MCH 31.0 MCHC 34.6 RDW 13.5 Plt Count 164 MPV 10.8 H Immature Gran % (Auto) 0.4 Neut % (Auto) 69.1 Lymph % (Auto) 18.4 [place] % (Auto) 11.0 H Eos % (Auto) 0.7 Baso % (Auto) 0.4 Lymph # (Auto) 2.50 [place] # (Auto) 1.5 H Eos # (Auto) 0.1 Baso # (Auto) 0.1 Abs Immat Gran (auto) 0.06 H Absolute Neuts (auto) 9.4 H Absolute Nucleated RBC 0.0 Nucleated RBC % 0.0 Sodium 140 Potassium 3.3 L Chloride 112 H Carbon Dioxide 21 L Anion Gap 7 L BUN 12 Creatinine 1.00 Estim Creat Clear Calc 88 Estimated GFR > 60 Glucose 94 POC Capillary Glucose Calcium 8.2 L Post-procedural complaints: none Patient Feedback: Patient satisfied with anesthetic care.
[2021-02-11 07:45] LABS: Glucose Point of Care 94 (65-105)
== END 2021-02-11 09:35 | disposition home or self-care (01) ==
LOC: ANHSURGERY 07:19 → ANH2MED 02-11 09:35
PROVIDERS: PCP Nurse Practitioner Family; Visit Provider Surgery Plastic and Reconstructive Surgery
PROC: 0JB80ZZ Excision of Abdomen Subcutaneous Tissue and Fascia, Open Approach (ICD-10-PCS; CPT 15830; principal; 2021-02-10 07:30)
DX: M79.3 Panniculitis, unspecified (principal); E11.9 Type 2 diabetes mellitus without complications; E78.00 Pure hypercholesterolemia, unspecified; R12 Heartburn; F41.8 Other specified anxiety disorders; Z87.891 Personal history of nicotine dependence; F12.90 Cannabis use, unspecified, uncomplicated; Z79.84 Long term (current) use of oral hypoglycemic drugs; Z79.4 Long term (current) use of insulin; Z79.891 Long term (current) use of opiate analgesic
CPT/HCPCS: 15830; 36415; 80048; 80307; 82565; 82948; 85025; 85049; A9270; J0171; J0330; J0690; J1170; J1650; J1815; J2250; J2270; J2405; J2704; J3010; J7120